=== PATIENT | female | born 1955 | race Hispanic/Latino ===

== ENCOUNTER 2018-02-02 10:24 | Outpatient (CLI) | payer OTHER ==
--- NOTE | 2018-02-04 09:25 | Mammography Report ---
BILATERAL DIGITAL SCREENING MAMMOGRAM with CAD: 02/02/18 10:24:00 CLINICAL: Routine screening. COMPARISON:03/14/15 FINDINGS: The breasts are heterogeneously dense, which may obscure small masses. No mass, architectural distortion or suspicious calcifications. IMPRESSION: No mammographic evidence of malignancy. BI-RADS CATEGORY: 1 - - Negative RECOMMENDATION: Routine mammographic screening in one year. COMMENT: Patient follow-up letters are generated by our [employer] application.
== END 2018-02-02 10:25 | disposition home or self-care (01) ==
LOC: SPVWC 10:24
PROVIDERS: ATTEND Family Medicine
DX: Z12.31 Encounter for screening mammogram for malignant neoplasm of breast (principal)
CPT/HCPCS: 77067

== ENCOUNTER 2018-05-12 09:19 | Outpatient (CLI) | payer OTHER ==
--- NOTE | 2018-05-12 14:49 | Ultrasound Report ---
ABDOMINAL ULTRASOUND: 05/12/18 09:19:00 CLINICAL: Elevated liver enzymes. FINDINGS: High-resolution ultrasound demonstrates borderline-enlarged liver with moderate diffuse increased echogenicity. No liver mass. Normal hepatic vasculature and inferior vena cava. The gallbladder is partially contracted with no stones. The gallbladder wall measures 1.6 mm. Normal bile ducts. The common bile duct measures 1.7 mm diameter. Normal pancreatic head and body. The pancreatic tail is not imaged. Normal abdominal aorta measuring 2.0 cm maximum. The spleen measures 9.5 x 5.5 x 5.2 cm. a splenic cyst measures 3.1 x 3.2 x 2.5 cm. The cyst has a smooth relatively thin wall. Several echogenic foci are identified within the cyst and are likely calcifications. Normal kidneys with normal echogenicity and normal non-dilated renal collecting systems and ureters. The right kidney measures 12.1 x 4.9 x 5.1 cm. The left kidney measures 10.8 x 4.9 x 4.5 cm. No renal mass or calculus. No ascites or mass. IMPRESSION: 1. Borderline hepatomegaly and increased liver echogenicity suggestive of hepatic steatosis. 2. No cholelithiasis. 3. No biliary obstruction. 4. A benign 3.1 cm splenic cyst.
== END 2018-05-12 09:20 | disposition home or self-care (01) ==
LOC: SPVWC 09:19
PROVIDERS: ATTEND Family Medicine
DX: K76.89 Other specified diseases of liver (principal)
CPT/HCPCS: 76700